=== PATIENT | male | born 1985 | race Caucasian/White ===

== ENCOUNTER 2017-05-08 19:05 | Emergency (ER) | payer OTHER ==
[~2017-05-08] VITALS: Ht 190.5 cm; Wt 118.7 kg
[~2017-05-08 19:05] MED LIST: NRV/5 PO; SERT-234 PO
[2017-05-08 19:26] VITALS: Ht 190.5 cm; Wt 118.7 kg
[2017-05-08 21:30] VITALS: TEMP 36.8
[2017-05-08 21:43] LABS: BASO % 0.1 %; BASO ABS # 0.01 K/uL (0-0.2); EOS % 0.6 %; EOS ABS # 0.06 K/uL (0-0.5); HEMATOCRIT 44.1 % (42-52); HEMOGLOBIN 15.4 g/dL (14.0-18.0); IG# 0.03 K/uL (0.00-0.02); LYMPH % 24.1 %; LYMPH ABS # 2.35 K/uL (1.2-3.4); MEAN CORPUSCULAR HEMOGLOBIN 29.3 pg (25-34); MEAN CORPUSCULAR HGB CONC 34.9 g/dl (32-36); MEAN PLATELET VOLUME 10.7 fL (7.4-10.4); MONO % 5.7 %; MONO ABS # 0.56 K/uL (0.11-0.59); NEUT % 69.2 %; NEUT ABS # 6.74 K/uL (1.4-6.5); PLATELET COUNT 221 K/uL (130-400); RED CELL DISTRIBUTION WIDTH CV 12.5 % (11.5-14.5); RED CELL DISTRIBUTION WIDTH SD 37.8 fL (36.4-46.3); WHITE BLOOD COUNT 9.75 K/uL (4.8-10.8)
[2017-05-08 22:10] LABS: ALBUMIN 4.2 gm/dl (3.4-5.0); CALCIUM 8.9 mg/dl (8.5-10.1); CREATININE 0.94 mg/dl (0.60-1.40)
[2017-05-08 22:13] LABS: TOTAL PROTEIN 7.6 gm/dl (6.4-8.2)
[2017-05-08] MEDS ORDERED: ONDANSETRON 4MG OD TAB PO ONE (22:45)
[2017-05-08] MEDS ORDERED: OXYCODONE HCL IR 5 MG TAB (IMMEDIATE RELEASE) PO STA (22:45)
[2017-05-08] MEDS ORDERED: KETOROLAC TROMETHAMINE 60 MG/2 ML VIAL IM STA (22:45)
[2017-05-09] MEDS ORDERED: OXYCODONE IR HOME PACK PO ONE
[2017-05-09 00:07] VITALS: BP 152/72; PULSE 67; O2SAT 97
--- NOTE | 2017-05-09 00:24 | EMERGENCY ROOM VISIT NOTE ---
History Report prepared by Joao: Sabrina Verdin Under the Supervision of: Dr. Thanh Abbott D.O. First contact with patient: 22:38 Chief Complaint: FLANK PAIN Stated Complaint: ABD PAIN,L SIDE History of Present Illness The patient is a 32 year old male who presents to the Emergency Room with complaints of persistent flank pain starting yesterday. The pain is in his left lower back. He first noticed it while he was at work. He noticed it again today while he was moving furniture. He currently describes it as dull. It worsens with certain movements. He experienced some relief with Aleve. He has some pain in his left lower abdomen. He is nauseous with the pain and vomited once today. He denies any urinary symptoms. He denies any fall or trauma. He has a history of bulging discs and back surgery. He denies any history of kidney stones. Source of History: patient Onset: yesterday Position: other (left flank) Quality: dull Timing: other (persistent) Modifying Factors (Worsening): movement Modifying Factors (Relieving): other (aleve) Associated Symptoms: + nausea, + vomiting, + abdominal pain, No urinary symptoms Review of Systems See HPI for pertinent positives & negatives. A total of 10 systems reviewed and were otherwise negative. Past Medical & Surgical Medical Problems: (1) HTN (hypertension) Family History Diabetes mellitus Hypertension Social History Smoking Status: Never Smoker Alcohol Use: occasionally Drug Use: none Marital Status: Housing Status: lives with family Occupation Status: employed Current/Historical Medications No Active Prescriptions or Reported Meds Allergies Coded Allergies: Lisinopril (Verified Allergy, Intermediate, HIVES, SWELLING, 10/11/15) Amoxicillin (Verified Allergy, Unknown, HIVES, 10/11/15) Physical Exam Vital Signs Date Time Temp Pulse Resp B/P (MAP) Pulse Ox O2 Delivery O2 Flow Rate FiO2 05/09/17 00:07 67 18 152/72 97 Room Air 05/08/17 22:52 83 18 149/97 97 Room Air 05/08/17 21:30 36.8 84 18 144/90 97 Room Air 05/08/17 19:26 36.8 80 18 170/85 97 Room Air Physical Exam GENERAL: Patient is awake, alert, and in no acute distress. Patient is resting comfortably and showing no signs of anxiety EYES: The conjunctivae are clear. The pupils are round and reactive. EARS, NOSE, MOUTH AND THROAT: The nose is without any evidence of any deformity. Mucous membranes are moist tongue is midline NECK: The neck is nontender and supple. RESPIRATORY: Normal respiratory effort is noted there is no evidence of wheezing rhonchi or rales CARDIOVASCULAR: Regular rate and rhythm noted there no murmurs rubs or gallops normal S1 normal S2 GASTROINTESTINAL: The abdomen is mildly distended but soft. There was no guarding or rigidity appreciated. BACK: Mild left CVA tenderness to percussion. There was no midline tenderness. ROM normal. MUSCULOSKELETAL/EXTREMITIES: There is no evidence of gross deformity full range of motion is noted in the hips and shoulders SKIN: There is no obvious evidence of any rash. There are no petechiae, pallor or cyanosis noted. NEUROLOGIC: Patient is awake alert and oriented x3 strength is symmetric patellar reflexes are 2+ bilaterally Medical Decision & Procedures ER Provider Diagnostic Interpretation: Radiology results as stated below per my review and [facility] radiologist interpretation: CT abdomen & pelvis without contrast: Normal appendix. No bowel obstruction or inflammation. Small fat-containing right inguinal hernia. No renal or ureteral stone. No hydronephrosis in either kidney. Laboratory Results 05/08/17 21:30 Red Blood Count 5.25, Mean Corpuscular Volume 84.0, Mean Corpuscular Hemoglobin 29.3, Mean Corpuscular Hemoglobin Concent 34.9, Mean Platelet Volume 10.7, Neutrophils (%) (Auto) 69.2, Lymphocytes (%) (Auto) 24.1, Monocytes (%) (Auto) 5.7, Eosinophils (%) (Auto) 0.6, Basophils (%) (Auto) 0.1, Neutrophils # (Auto) 6.74, Lymphocytes # (Auto) 2.35, Monocytes # (Auto) 0.56, Eosinophils # (Auto) 0.06, Basophils # (Auto) 0.01 05/08/17 21:30 Test 05/08/17 21:30 05/08/17 23:10 White Blood Count 9.75 K/uL (4.8-10.8) Red Blood Count 5.25 M/uL (4.7-6.1) Hemoglobin 15.4 g/dL (14.0-18.0) Hematocrit 44.1 % (42-52) Mean Corpuscular Volume 84.0 fL (80-100) Mean Corpuscular Hemoglobin 29.3 pg (25-34) Mean Corpuscular Hemoglobin Concent 34.9 g/dl (32-36) Platelet Count 221 K/uL (130-400) Mean Platelet Volume 10.7 fL (7.4-10.4) Neutrophils (%) (Auto) 69.2 % Lymphocytes (%) (Auto) 24.1 % Monocytes (%) (Auto) 5.7 % Eosinophils (%) (Auto) 0.6 % Basophils (%) (Auto) 0.1 % Neutrophils # (Auto) 6.74 K/uL (1.4-6.5) Lymphocytes # (Auto) 2.35 K/uL (1.2-3.4) Monocytes # (Auto) 0.56 K/uL (0.11-0.59) Eosinophils # (Auto) 0.06 K/uL (0-0.5) Basophils # (Auto) 0.01 K/uL (0-0.2) RDW Standard Deviation 37.8 fL (36.4-46.3) RDW Coefficient of Variation 12.5 % (11.5-14.5) Immature Granulocyte % (Auto) 0.3 % Immature Granulocyte # (Auto) 0.03 K/uL (0.00-0.02) Anion Gap 7.0 mmol/L (3-11) Est Creatinine Clear Calc Drug Dose 155.2 ml/min Estimated GFR () 123.0 Estimated GFR (Non- 106.1 BUN/Creatinine Ratio 20.9 (10-20) Calcium Level 8.9 mg/dl (8.5-10.1) Total Bilirubin 0.4 mg/dl (0.2-1) Aspartate Amino Transf (AST/SGOT) 22 U/L (15-37) Alanine Aminotransferase (ALT/SGPT) 43 U/L (12-78) Alkaline Phosphatase 91 U/L (45-117) Total Protein 7.6 gm/dl (6.4-8.2) Albumin 4.2 gm/dl (3.4-5.0) Globulin 3.4 gm/dl (2.5-4.0) Albumin/Globulin Ratio 1.3 (0.9-2) Urine Color DK YELLOW Urine Appearance CLEAR (CLEAR) Urine pH 5.0 (4.5-7.5) Urine Specific Theodore 1.043 (1.000-1.030) Urine Protein NEG (NEG) Urine Glucose (UA) NEG (NEG) Urine Ketones TRACE (NEG) Urine Occult Blood NEG (NEG) Urine Nitrite NEG (NEG) Urine Bilirubin NEG (NEG) Urine Urobilinogen NEG (NEG) Urine Leukocyte Esterase NEG (NEG) Laboratory results per my review. Medications Administered Medications (Trade) Dose Ordered Sig/Adan Route Start Time Stop Time Status Last Admin Dose Admin Ketorolac Tromethamine (Toradol Inj) 60 mg NOW STAT IM 05/08/17 22:45 05/08/17 22:46 DC 05/08/17 22:51 60 MG Oxycodone HCl (Roxicodone Immediate Rel Tab) 5 mg NOW STAT PO 05/08/17 22:45 05/08/17 22:47 DC 05/08/17 22:45 5 MG Ondansetron HCl (Zofran Odt) 4 mg ONE ONCE PO 05/08/17 22:45 05/08/17 22:47 DC 05/08/17 22:45 4 MG Oxycodone HCl (Roxicodone Immediate Rel 5MG Home Pack) 1 homepack UD ONCE PO 05/09/17 00:00 05/09/17 00:01 DC 05/09/17 00:09 1 HOMEPACK ED Course 2244: The patient was evaluated in room A3. A complete history and physical examination were performed. 2245: Zofran Odt 4 mg PO, Oxycodone HCl 5 mg PO, Toradol Inj 60 mg IM. 0000: Oxycodone HCl 1 homepack PO. 0004: Upon reevaluation, the patient is resting comfortably. I discussed the results and treatment plan with him. He verbalized agreement of the treatment plan. He was discharged home. Medical Decision Prior records/ancillary studies reviewed. Triage Nursing notes reviewed. The patient's history was concerning for left flank pain. Differential diagnosis: Etiologies such as renal colic, appendicitis, diverticulitis, mesenteric ischemia, aortic pathology, infections, inflammatory bowel disease, PUD, biliary pathology, UTI, as well as others were entertained. The patient is a 32-year-old male who presented to the emergency department for evaluation of flank pain. The patient had flank pain which radiated to his left groin. Initially I thought this was consistent with ureteral colic. Patient was treated with pain medication in the emergency department. I discussed the patient's laboratory and radiographic studies with him. No definite signs of kidney stone or ureteral calculi could be found. This reason I do feel this could be related to musculoskeletal back pain. He was encouraged to rest and avoid any strenuous activity. I also encouraged him to follow-up with his primary care physician for further evaluation. I also recommended that he return to the emergency department immediately if symptoms change worsening the need arises. Medication Reconcilliation Current Medication List: was personally reviewed by me Blood Pressure Screening Patient's blood pressure: Elevated blood pressure Blood pressure disposition: Elevated BP felt to be situational Impression Primary Impression: Musculoskeletal back pain Scribe Attestation The scribe's documentation has been prepared under my direction and personally reviewed by me in its entirety. I confirm that the note above accurately reflects all work, treatment, procedures, and medical decision making performed by me. Departure Information Dispostion Home / Self-Care Prescriptions No Active Prescriptions or Reported Meds Forms HOME CARE DOCUMENTATION FORM, Work Instructions, Return To Work: 2 days IMPORTANT VISIT INFORMATION Patient Instructions My [facility], ED Low Back Pain Injury Additional Instructions Continue using Motrin and Tylenol as directed for pain. Rest and avoid any strenuous activity. Continue all other medications as prescribed. Call your family doctor to schedule a follow-up appointment. Work Instructions Return To Work: 2 days
--- NOTE | 2017-05-09 07:30 | DIAGNOSTIC IMAGING REPORT ---
ABDOMEN AND PELVIS CT WITHOUT CONTRAST CT DOSE: 808.69 mGy.cm HISTORY: left flank pain TECHNIQUE: Multiaxial CT images of the abdomen and pelvis were performed without contrast. A dose lowering technique was utilized adhering to the principles of ALARA. COMPARISON STUDY: Pelvis CT 01/07/2013. FINDINGS: The lung bases are clear. No pneumoperitoneum. No pneumatosis. No fractures within the visualized osseous structures. The unenhanced liver, gallbladder, spleen, adrenal glands, and pancreas are unremarkable. No renal stones. No hydronephrosis. No retroperitoneal lymphadenopathy. Slight increased density within the bladder lumen. Suboptimal evaluation for bowel pathology due to the lack of intravenous and oral contrast. However, no definite bowel wall thickening or obstruction. Normal appendix. Tiny fat-containing right inguinal hernia. IMPRESSION: 1. No definite bowel wall thickening or obstruction. 2. Normal appendix. 3. No renal or ureteral stones. No hydronephrosis. 4. Question slight increased density within the bladder lumen. This may be artifactual. However, recommend correlation with urinalysis to exclude the possibility of hematuria. Electronically signed by: Jean-Pierre Fan M.D. 05/09/2017 7:29 AM Dictated Date/Time: 05/09/2017 7:25 AM
== END 2017-05-09 00:12 | disposition home or self-care (01) ==
LOC: C.EDB 19:06 → C.EDA 05-09 00:12
DX: M54.9 Dorsalgia, unspecified (principal); I10 Essential (primary) hypertension; Z83.3 Family history of diabetes mellitus; Z82.49 Family history of ischemic heart disease and other diseases of the circulatory system; Z88.8 Allergy status to other drugs, medicaments and biological substances